=== PATIENT | male | born 1970 | race Caucasian/White ===

== ENCOUNTER → 2019-10-21 | Outpatient (CLI) | payer OTHER | END | disposition home or self-care (01) | LOC: CVU 13:12 | PROVIDERS: ATTEND Internal Medicine | DX: R09.02 Hypoxemia (principal); Z86.711 Personal history of pulmonary embolism; Z79.01 Long term (current) use of anticoagulants | CPT/HCPCS: 93306 ==

== ENCOUNTER 2019-11-06 15:34 | Outpatient (CLI) | payer OTHER ==
[~2019-11-06 15:34] MED LIST: OMNIPAQUE 350 MG/ML, 100ML BOTTLE ONE
== END 2019-11-06 23:59 | disposition home or self-care (01) ==
LOC: RAD 15:34
PROVIDERS: ATTEND Internal Medicine
DX: N28.1 Cyst of kidney, acquired (principal); R09.02 Hypoxemia; E04.9 Nontoxic goiter, unspecified
CPT/HCPCS: 71275; Q9967

== ENCOUNTER 2020-01-01 12:46 | Outpatient (CLI) | payer OTHER ==
[2020-01-01] MEDS ORDERED: LIDOCAINE-MPF 1%, 5ML ONE ×2 (13:46→14:28)
== END 2020-01-01 23:59 | disposition home or self-care (01) ==
LOC: RAD 12:46
PROVIDERS: ATTEND Surgery
DX: E07.89 Other specified disorders of thyroid (principal); E04.1 Nontoxic single thyroid nodule
CPT/HCPCS: 10005; 88172; 88173

== ENCOUNTER 2020-01-25 06:07 | Day surgery (SDC) | payer OTHER ==
[~2020-01-25] VITALS: Ht 195.6 cm; Wt 137.1 kg
[2020-01-25 06:50] VITALS: BP 159/106
[2020-01-25] MEDS ORDERED: LACTATED RINGERS 1,000 ML IV SCH (06:53)
[2020-01-25] MEDS ORDERED: ATOR10TA9 PO (06:54)
[2020-01-25] MEDS ORDERED: APIX5TAB PO (06:54)
[2020-01-25] MEDS ORDERED: MONT10TA6 PO (06:55)
[2020-01-25] MEDS ORDERED: MIDAZOLAM 1 MG/ML, 2ML ONE (07:51)
[2020-01-25] MEDS ORDERED: FENTANYL PF 250 MCG/5ML ONE ×2 (07:51→08:40)
[2020-01-25] MEDS ORDERED: PHENYLEPHRINE 10 MG/ML ONE (08:29)
[2020-01-25] MEDS ORDERED: ACETAMINOPHEN 325 MG TABLET PO PRN (08:30)
[2020-01-25] MEDS ORDERED: MORPHINE SULFATE 4 MG/ML, 1ML IVPush PRN (08:30)
[2020-01-25] MEDS ORDERED: LABETALOL 5MG/ML, 20ML IV PRN (08:30)
[2020-01-25] MEDS ORDERED: ONDANSETRON 2MG/ML, 2ML IV PRN ×2 (08:30→13:00)
[2020-01-25] MEDS ORDERED: OXYcodone 5 MG/5 ML ORAL.SOL UDC PO PRN (08:30)
[2020-01-25] MEDS ORDERED: MEPERIDINE/PF 25MG/ML,1ML IVPush PRN (08:30)
[2020-01-25] MEDS ORDERED: PROPOFOL 10 MG/ML, 20ML ONE (08:40)
[2020-01-25] MEDS ORDERED: NEOSTIGMINE 1 MG/ML, 10ML ONE (08:40)
[2020-01-25] MEDS ORDERED: ROCURONIUM 10MG/ML,5ML ONE (08:40)
[2020-01-25] MEDS ORDERED: SUCCINYLCHOLINE 20 MG/ML, 10ML ONE (08:40)
[2020-01-25] MEDS ORDERED: CEFAZOLIN 1,000 MG ONE (08:40)
[2020-01-25] MEDS ORDERED: GLYCOPYRROLATE 0.2MG/1ML, 5ML ONE (08:40)
[2020-01-25] MEDS: FENTANYL PF 100 MCG/2ML IV PRN ×2 (10:25→10:31)
[2020-01-25] MEDS ORDERED: FENTANYL PF 100 MCG/2ML ONE (10:27)
[2020-01-25] MEDS ORDERED: OXYcodone 5 MG/5 ML ORAL.SOL UDC ONE (10:27)
[2020-01-25] MEDS ORDERED: hydrALAzine 20 MG/ML, 1ML ONE (10:45)
[2020-01-25] MEDS: hydrALAzine 20 MG/ML, 1ML IV PRN ×2 (10:45→11:05)
[2020-01-25] MEDS ORDERED: MEPERIDINE/PF 25MG/ML,1ML ONE (11:04)
[2020-01-25] MEDS ORDERED: LABETALOL 5MG/ML, 20ML ONE (11:15)
[2020-01-25] MEDS ORDERED: HYDROmorphone 1 MG/ML, 1ML INJ ONE (11:33)
[2020-01-25] MEDS: HYDROmorphone 2 MG/ML, 1ML IVPush PRN ×2 (11:35→11:45)
[2020-01-25 12:45] VITALS: BP 125/85
[2020-01-25] MEDS: LACTATED RINGERS 1,000 ML IV SCH (16:35)
[2020-01-25] MEDS: HYDROcodone/APAP 5/325 TABLET PO PRN ×2 (16:46→21:02)
[2020-01-25] MEDS: morphine SULFATE 10 MG/ML, 1ML IV PRN ×2 (17:46→22:31)
[2020-01-25 18:27] LABS: ALBUMIN 3.5 g/dL (3.4-5.0); CALCIUM 8.6 mg/dL (8.5-10.1)
[2020-01-25] MEDS ORDERED: MONTELUKAST 10 MG TABLET PO SCH (21:00)
[2020-01-25] MEDS ORDERED: ATORVASTATIN 10 MG TABLET PO SCH (21:00)
[2020-01-25 21:29] VITALS: BP 148/100
[2020-01-25 23:57] VITALS: BP 149/89
[2020-01-26 01:28] LABS: ALBUMIN 3.3 g/dL (3.4-5.0); CALCIUM 8.2 mg/dL (8.5-10.1)
[2020-01-26 03:54] VITALS: BP 143/100
[2020-01-26] MEDS: morphine SULFATE 10 MG/ML, 1ML IV PRN ×2 (04:28→10:36)
[2020-01-26] MEDS: LACTATED RINGERS 1,000 ML IV SCH ×2 (04:31→08:02)
[2020-01-26 06:16] LABS: ALBUMIN 3.2 g/dL (3.4-5.0); CALCIUM 8.4 mg/dL (8.5-10.1)
[2020-01-26 06:41] VITALS: BP 139/88
[2020-01-26] MEDS: HYDROcodone/APAP 5/325 TABLET PO PRN ×2 (08:01→12:19)
[2020-01-26] MEDS ORDERED: LEVO125T PO ×2 (11:32→11:33)
[2020-01-26] MEDS ORDERED: HYDR-3237 PO (11:33)
== END 2020-01-26 12:42 | disposition home or self-care (01) ==
LOC: OUT 06:07 → 4NE 12:13 → OUT 12:20 → UNDOADMIN 12:20 → 4NE 01-26 12:36 → DCLOUNGE 01-26 12:36 → UNDODISIN 01-26 12:42 → OUT 01-26 12:42
PROVIDERS: ATTEND Surgery
DX: E04.2 Nontoxic multinodular goiter (principal); E78.1 Pure hyperglyceridemia; E66.01 Morbid (severe) obesity due to excess calories; Z68.36 Body mass index [BMI] 36.0-36.9, adult; Z79.01 Long term (current) use of anticoagulants; Z79.899 Other long term (current) drug therapy; Z86.718 Personal history of other venous thrombosis and embolism; Z86.711 Personal history of pulmonary embolism; Z98.84 Bariatric surgery status; Z98.890 Other specified postprocedural states; Z83.3 Family history of diabetes mellitus; Z82.49 Family history of ischemic heart disease and other diseases of the circulatory system
CPT/HCPCS: 36415; 60240; 82040; 82310; 84432; 86800; 88307; C1760; J0330; J0360; J0690; J1170; J2175; J2250; J2270; J2370; J2405; J2704; J2710; J3010; J7120; G0378